=== PATIENT | male | born 1965 | race Caucasian/White ===

== ENCOUNTER 2018-07-04 10:57 | Emergency (ER) | payer MEDICAID ==
[~2018-07-04] VITALS: Ht 185.4 cm; Wt 104.3 kg
[2018-07-04 11:06] VITALS: BP 127/77
[2018-07-04] MEDS ORDERED: KETOROLAC TROMETH 60MG/2ML VIAL IM ONE (12:45)
[2018-07-04] MEDS ORDERED: DEXAMETHASONE SOD PHOS 10MG/1ML VIAL INJ IM ONE (12:45)
== END 2018-07-04 13:32 | disposition home or self-care (01) ==
LOC: ER 10:57
DX: M54.16 Radiculopathy, lumbar region (principal); M51.26 Other intervertebral disc displacement, lumbar region; E11.9 Type 2 diabetes mellitus without complications; I10 Essential (primary) hypertension; Z88.0 Allergy status to penicillin; Z88.2 Allergy status to sulfonamides
CPT/HCPCS: 96372; 99284; J1100; J1885